=== PATIENT | male | born 1980 | race African-American/Black ===

== ENCOUNTER 2016-10-14 01:48 | Inpatient (IN) | payer OTHER ==
--- NOTE | ~2016-10-14 | DS ---
Unit #: [id number] #: [id number] Patient: PATRICK LIAO [id number] [place] [address] [id number] MR#: [id number] NAME: PATRICK LIAO ROOM: P179 Age: 36 Sex: M Admission Date: 10/14/2016 : 1980 Discharge Date: 10/17/2016 Attending Physician: Gio Perez M.D. Primary Care Physician: Generic Doctor Not In System DISCHARGE SUMMARY REASON FOR ADMISSION Mr. Liao is a 36-year-old man, who reports increasing job stress, threatened loss of employment, and ongoing increasing alcohol use. He denied suicidal ideation, intent, or plan and was admitted for detox. LABORATORY DATA Please see hospital chart. HOSPITAL COURSE The patient was admitted and placed on the alcohol detox protocol. He had no adverse events such as hallucinations, delusions, or confusion during his admission and detox without further incident. He was able to contract for safety for outpatient care on the date of discharge. DISCHARGE DIAGNOSES Helotes I: Alcohol dependence with withdrawal, uncomplicated. Helotes II: No diagnosis. Helotes III: None. BODY AFTER AXIS DISCHARGE INSTRUCTIONS Follow up with [facility]. DISCHARGE MEDICATIONS None. CONDITION AT DISCHARGE Fair. PROGNOSIS Fair. DIET Ad de. ACTIVITY Ad de. Unit #: [id number] #: [id number] Patient: PATRICK LIAO Dictated by... Gio Perez M.D. [facility]/delmy TD: 12/27/2016 13:58 JOB #: [id number] DISCHARGE SUMMARY Page 1 of 1 X Gio Perez MD X DISCHARGE SUMMARY
--- NOTE | ~2016-10-14 | HP ---
Unit #: [id number] #: [id number] Patient: PATRICK VIVAR [id number] [place] [address] [id number] I MR#: [id number] NAME: PATRICK VIVAR ROOM: P178 Age: 36 Sex: M Admission Date: 10/14/2016 : 1980 Attending Physician: Gio Perez M.D. Admitting Physician: Gio Perez M.D. Primary Care Physician: Generic Doctor Not In System HISTORY AND PHYSICAL HISTORY OF PRESENT ILLNESS Patrick is a 36-year-old male admitted on 10/14/2016 to [facility] for detox from alcohol. PAST MEDICAL HISTORY None. PAST SURGICAL HISTORY None. SOCIAL HISTORY Smokes seven cigarettes daily. Binge alcohol use. No illegal drug use. He is currently single and living with his mother. FAMILY HISTORY Noncontributory. REVIEW OF SYSTEMS CONSTITUTIONAL: No fever or chills. HEENT: Denies any sore throat, ear pain or runny nose. CARDIOVASCULAR: Denies chest pain, irregular heart rhythm or palpitations. CHEST: Denies shortness of breath or cough. No hemoptysis. GASTROINTESTINAL: Denies nausea, vomiting, diarrhea or chronic constipation. ENDOCRINE: Denies history of increased thirst or urination. No recent significant weight loss or gain. GENITOURINARY: Denies dysuria, frequency, or hematuria. SKIN: Denies any rashes. HEMATOLOGIC: Denies history of increased bleeding or bruising. MUSCULOSKELETAL: Denies any hot, swollen joints. No generalized muscle pain. NEUROLOGIC: Denies problems with vision or speech. No frequent, severe headaches. No numbness, tingling or weakness in any extremities. Denies loss of bladder or bowel control. CURRENT MEDICATIONS None. ALLERGIES No known drug allergies. Unit #: [id number] #: [id number] Patient: PATRICK VIVAR PHYSICAL EXAMINATION GENERAL: Alert, oriented, in no acute distress. VITAL SIGNS: Blood pressure 144/88, heart rate 63, respirations 16, temperature 97.4. HEIGHT: 5 foot 7 inches. WEIGHT: 154 pounds. SKIN: Warm and dry without rash or lesion. HEENT: Normocephalic. TMs not viewed. Oral and nasal passages clear. Conjunctivae clear. PERRLA. EOMs intact. NECK: Supple without lymphadenopathy or thyromegaly. HEART: Regular rate and rhythm without murmur. LUNGS: Clear. ABDOMEN: Soft, nontender, without masses or hepatosplenomegaly. : Not done. EXTREMITIES: No evidence of cyanosis, clubbing or edema. Moves all without focal deficit. NEUROLOGICAL: Grossly within normal limits. Cranial Nerves: II: Visual flores are intact. III, IV AND : Extraocular movements are intact. Pupils are equal, round and reactive to light. V: Facial sensation is grossly normal. VII: Facial movements and expression are normal. VIII: Auditory acuity grossly intact. IX, X: Uvula is midline. Phonation is normal. XI: Patient shrugs shoulders and turns head normally. XII: Tongue protrudes in the midline. Sensory and Motor Function: Sensory and motor sensation is grossly normal. Motor: moves all extremities well. Coordination: Gait is normal. Deep Tendon Reflexes: Intact. IMPRESSION Psychiatric admission. RECOMMENDATIONS Psychiatric, per psychiatrist. MEDICAL: I see no contraindications to participating in facility's activities. MEDICAL PROGNOSIS Good. MEDICAL CONDITION Stable. Dictated by... Vish Rey/mellissa TD: 10/15/2016 00:27 JOB #: [id number] Unit #: [id number] #: [id number] Patient: PATRICK VIVAR HISTORY AND PHYSICAL Page 1 of 1 X CHETNA JONES APRN X HISTORY AND PHYSICAL
--- NOTE | ~2016-10-14 | PA ---
Unit #: [id number] #: [id number] Patient: PATRICK LIAO [id number] [facility] [address] [place] [address] [id number] MR#: [id number] NAME: PATRICK LIAO ROOM: P178 Age: 36 Sex: M Admission Date: 10/14/2016 : 1980 Date of Assessment: 10/14/2016 Attending Physician: Gio Perez M.D. Admitting Physician: Gio Perez M.D. Primary Care Physician: Generic Doctor Not In System PSYCHIATRIC ASSESSMENT DATE OF SERVICE 10/14/2016. INFORMANTS The patient, reliable; OLOP, reliable. CHIEF COMPLAINT Alcohol detox. HISTORY OF PRESENT ILLNESS Mr. Liao is a 36-year-old man who reports he has been drinking a lot and has been under increasing job stress with threatened loss of employment. He has not been "working the steps" as he should, but was an active participant in AA. He had some depression because of the alcohol dependence, but denied suicidal ideation, intent, or plan. He was admitted for alcohol detox. PAST PSYCHIATRIC HISTORY One previous admission to this facility under the care of Dr. Montague in 2014. He has a history of withdrawal seizures and has been admitted to [facility] in the past as well. FAMILY PSYCHIATRIC HISTORY The patient has alcoholism on both sides of his family and a family member with depression. SOCIAL HISTORY The patient is [place], raised in [place] and [place]. He denied any history of physical, mental, or sexual abuse. 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 He has never been and has no children and is currently living with family. PAST MEDICAL HISTORY No chronic medical problems. MEDICATIONS None currently. ALLERGIES No known medication allergies. SUBSTANCE USE HISTORY As noted above. Unit #: [id number] #: [id number] Patient: PATRICK LIAO MENTAL STATUS EXAMINATION The patient presented as a mildly disheveled man who appeared his stated age. He stood 5 feet 7 inches tall, weight 154 pounds. Vital signs; temperature 99.1, pulse 86, respirations 18, and blood pressure 139/86. His speech was soft, spontaneous, and easily understood. Musculoskeletal examination was mildly agitated. His mood was anxious with a congruent affect. He was alert and fully oriented. His memory and concentration were intact. His thought processes were logical with no active psychosis. He denied suicidal ideation, intent, or plan. Insight and judgment were intact. Fund of knowledge and abstraction were intact. ASSETS AND LIABILITIES The patient knows local resources and presents voluntarily for treatment. He is familiar with AA and processes. Liabilities include difficulty maintaining sobriety and unstable employment. ADMITTING DIAGNOSES AXIS I: Alcohol dependence with withdrawal, uncomplicated, F10.230. AXIS II: No diagnosis. AXIS III: Alcohol withdrawal syndrome. AXIS IV: AXIS V: PSYCHIATRIC PLAN The patient was admitted and placed on the alcohol detox protocol. He will have a physical examination and baseline laboratory studies. He will enroll in 12-step groups and activities. Treatment goals are resolution of intoxication, improvement in insight, and improvement in coping skills. DISCHARGE PLANNING Follow up with [facility]. ESTIMATED LENGTH OF STAY 5 days. Dictated by... Gio Perez M.D. DANIELLE/delmy TD: 10/15/2016 12:13 JOB #: [id number] PSYCHIATRIC ASSESSMENT Page 1 of 1 X Gio Perez MD X PSYCHIATRIC ASSESSMENT
== END 2016-10-17 17:50 | disposition home or self-care (01) | DRG 897 ==
LOC: P1E 01:48
PROC: HZ2ZZZZ Detoxification Services for Substance Abuse Treatment (ICD-10-PCS; principal; 2016-10-14)
DX: F10.230 Alcohol dependence with withdrawal, uncomplicated (principal); F17.210 Nicotine dependence, cigarettes, uncomplicated
CPT/HCPCS: 86592